=== PATIENT | female | born 1950 | race Caucasian/White ===

== ENCOUNTER 2016-08-13 18:46 | Emergency (ER) | payer MEDICARE, OTHER ==
[~2016-08-13 18:46] MED LIST: ADVAIR 250-501 EACH IH; ALDACTONE25 MG PO; ALLEGRA-D1 TAB.SR1; ALPRAZOLAM1 MG PO; ASPIRIN PO; BACLOFEN10 MG; CALCIUM 500 +1 EAC2 PO; CELEBREX; COREG PO; FISH OIL 1,0001 CAP PO; FLAX SEED OIL1000 M1 PO; LANOXIN; LOPRESSOR; METFORMIN PO; MEVACOR PO; MULTIPLE VITAMI1 T11 PO; NORCO 5/325 TAB1 TAB; OMEPRAZOLE40 MG PO; OYSTER CALCIUM500 MG; PHENERGAN PO; PRISTIQ50 MG PO; PROZAC; SOD BICARBONATE PO; TEMAZEPAM; ZESTRIL10 MG PO
== END 2016-08-13 18:50 | disposition home or self-care (01) ==
LOC: CED 18:46
DX: H10.31 Unspecified acute conjunctivitis, right eye (principal); E11.9 Type 2 diabetes mellitus without complications; I10 Essential (primary) hypertension; Z88.8 Allergy status to other drugs, medicaments and biological substances
CPT/HCPCS: 99282